=== PATIENT | male | born 2000 | race Caucasian/White ===

== ENCOUNTER 2024-11-23 05:40 | Emergency (ER) | payer OTHER ==
[2024-11-23 05:46] VITALS: RESP 18
--- NOTE | 2024-11-23 06:44 | XR ---
EXAMINATION TYPE: XR chest 2V DATE OF EXAM: 11/23/2024 6:41 AM COMPARISON: None CLINICAL INDICATION: Male, 24 years old with history of pain; [facility] TECHNIQUE: XR chest 2V Frontal and lateral views of the chest. FINDINGS: Lungs/Pleura: There is no evidence of pleural effusion, focal consolidation, or pneumothorax. Pulmonary vascularity: Unremarkable. Heart/mediastinum: Cardiomediastinal silhouette is unremarkable. Musculoskeletal: No acute osseous pathology. IMPRESSION: No acute cardiopulmonary disease/process. [facility], , 11/23/2024 6:42 AM
--- NOTE | 2024-11-23 07:08 | ED ---
Chest Pain HPI - General Chief Complaint: Chest Pain Stated Complaint: Chest pain Time Seen by Provider: 11/23/24 05:58 Source: patient, RN notes reviewed Mode of arrival: ambulatory Limitations: no limitations - History of Present Illness Initial Comments: 24-year-old male presents emergency department chief complaint of left-sided chest wall pain. Patient states that he lifted some granite the other day and injured his back and felt something in his chest but it worsened. He states he actually improved overnight but came back again this morning it is worse with movement, deep inspiration denies feeling short of breath. Denies any rashes. Patient denies any prior cardiac disease. - Related Data Allergies Allergy/AdvReac Type Severity Reaction Status Date / Time amoxicillin Allergy Rash/Hives Verified 11/23/24 05:43 latex Allergy Rash/Hives Verified 11/23/24 05:43 Review of Systems ROS Statement: Those systems with pertinent positive or pertinent negative responses have been documented in the HPI. ROS Other: All systems not noted in ROS Statement are negative. EKG Findings - EKG Comments: EKG Findings:: EKG performed at 5: 55 sinus rhythm rate of 65 ME 148 QRS 89 QT/QTc 383/394 - EKG Results: EKG: interpreted by [facility] Past Medical History Past Medical History: No Reported History History of Any Multi-Drug Resistant Organisms: None Reported Past Psychological History: No Psychological Hx Reported Smoking Status: Never smoker Past Alcohol Use History: Rare Past Drug Use History: Marijuana General Exam Limitations: no limitations General appearance: alert, in no apparent distress Head exam: Present: atraumatic, normocephalic, normal inspection Eye exam: Present: normal appearance, PERRL, EOMI. Absent: scleral icterus, conjunctival injection, periorbital swelling ENT exam: Present: normal exam, mucous membranes moist Neck exam: Present: normal inspection, full ROM. Absent: tenderness, meningismus, lymphadenopathy Respiratory exam: Present: normal lung sounds bilaterally, chest wall tenderness. Absent: respiratory distress, wheezes, rales, rhonchi, stridor Cardiovascular Exam: Present: regular rate, normal rhythm, normal heart sounds. Absent: systolic murmur, diastolic murmur, rubs, gallop, clicks GI/Abdominal exam: Present: soft, normal bowel sounds. Absent: distended, tenderness, guarding, rebound, rigid Course Vital Signs 11/23/24 05:43 Temperature 98.3 F Pulse Rate 83 Respiratory 18 Rate Blood Pressure 155/87 O2 Sat by Pulse 96 Oximetry Chest Pain MDM - MDM Was pt. sent in by a medical professional or institution (KARLA Martinez, CHIEF WHEELAGE CLERK, urgent care, hospital, or longterm...) When possible be specific @ -No Did you speak to anyone other than the patient for history (EMS, parent, family, police, friend...)? What history was obtained from this source @ -No Did you review nursing and triage notes (agree or disagree)? Why? @ -I reviewed and agree with nursing and triage notes Were old charts reviewed (outside hosp., previous admission, EMS record, old EKG , old radiological studies, urgent care reports/EKG's, longterm records)? Report findings @ -No old charts were reviewed Differential Diagnosis (chest pain, altered mental status, abdominal pain women, abdominal pain men, vaginal bleeding, weakness, fever, dyspnea, syncope, headache, dizziness, GI bleed, back pain, seizure, CVA, palpatations, mental health, musculoskeletal)? @ -Differential Chest Pain: Stable Angina, Unstable Angina, STEMI, NSTEMI Aortic Dissection, Pneumothorax, Musculoskeletal, Esophageal Spasm GERD, Cholecystitis, Pancreatitis, Zoster, this is not meant to be an all-inclusive list. EKG interpreted by me (3pts min.). @ -As above X-rays interpreted by me (1pt min.). @ -Chest x-ray shows no acute cardiopulmonary process CT interpreted by me (1pt min.). @ -None done U/S interpreted by me (1pt. min.). @ -None done What testing was considered but not performed or refused? (CT, X-rays, U/S, labs)? Why? @ -None What meds were considered but not given or refused? Why? @ -None Did you discuss the management of the patient with other professionals (professionals i.e. KARLA Martinez, CHIEF WHEELAGE CLERK, lab, RT, psych nurse, social work therapist, aluminum molding machine operator, teacher, sales promotion officer, family caseworker)? Give summary @ -No Was smoking cessation discussed for >3mins.? @ -No Was critical care preformed (if so, how long)? @ -No Were there social determinants of health that impacted care today? How? (Homel essness, low income, unemployed, alcoholism, drug addiction, transportation, low edu. Level, literacy, decrease access to med. care, custodial, rehab)? @ -No Was there de-escalation of care discussed even if they declined (Discuss DNR or withdrawal of care, Hospice)? DNR status @ -No What co-morbidities impacted this encounter? (DM, HTN, Smoking, COPD, CAD, Cancer, CVA, ARF, Chemo, Hep., AIDS, mental health diagnosis, sleep apnea, morbid obesity)? @ -None Was patient admitted / discharged? Hospital course, mention meds given and route, prescriptions, significant lab abnormalities, going to OR and other pertinent info. @ -Discharge patient has reproducible chest wall pain, pain after lifting some granite. Patient EKG is unremarkable chest x-ray is unremarkable. Vitals within normal notes. Patient advised to follow-up PCP return parameters lucy. Patient will continue anti-inflammatories. Undiagnosed new problem with uncertain prognosis? @ -No Drug Therapy requiring intensive monitoring for toxicity (Heparin, Nitro, Insulin, Cardizem)? @ -No Were any procedures done? @ -No Diagnosis/symptom? @ -Chest wall pain Acute, or Chronic, or Acute on Chronic? @ -Acute Uncomplicated (without systemic symptoms) or Complicated (systemic symptoms)? @ -Uncomplicated Side effects of treatment? @ -No Exacerbation, Progression, or Severe Exacerbation? @ -No Poses a threat to life or bodily function? How? (Chest pain, [place], [place], pneumonia, PE, COPD, DKA, ARF, appy, cholecystitis, CVA, Diverticulitis, Homicidal, Suicidal, threat to staff... and all critical care pts) @ -No Disposition Clinical Impression: Chest wall pain Disposition: HOME SELF-CARE Condition: Stable Instructions (If sedation given, give patient instructions): Chest Pain (ED) Additional Instructions: Please return to the Emergency Department if symptoms worsen or any other concerns. Is patient prescribed a controlled substance at d/c from ED?: No Referrals: Phil Mercado MD [STAFF PHYSICIAN] - 1-2 days Time of Disposition: 07:26
[2024-11-23 07:39] VITALS: BP 138/77; PULSE 59; TEMP 98
== END 2024-11-23 07:44 | disposition home or self-care (01) ==
LOC: EC 05:40
DX: R07.89 Other chest pain (principal); Z88.0 Allergy status to penicillin; Z91.040 Latex allergy status
CPT/HCPCS: 71046; 93005; 99285

== ENCOUNTER 2024-11-25 19:01 | Emergency (ER) | payer OTHER ==
[2024-11-25 19:07] VITALS: RESP 18; TEMP 97.6
[2024-11-25 19:40] LABS: Basophils % (A) 0 %; Eosinophils # (A) 0.3 k/uL (0-0.7); Eosinophils % (A) 2 %; HCT 42.4 % (39.0-53.0); HGB 14.5 gm/dL (13.0-17.5); Lymphocytes # (A) 2.8 k/uL (1.0-4.8); Lymphocytes % (A) 24 %; MCH 28.4 pg (25.0-35.0); MCHC 34.1 g/dL (31.0-37.0); MCV 83.2 fL (80.0-100.0); Mean Platelet Volume 7.8; Monocytes # (A) 0.6 k/uL (0-1.0); Monocytes % (A) 5 %; Neutrophils # (A) 8.1 k/uL (1.3-7.7); Neutrophils % (A) 67 %; Platelet Count 225 k/uL (150-450); RDW 12.6 % (11.5-15.5)
--- NOTE | 2024-11-25 19:48 | ED ---
General Adult HPI - General Chief complaint: Neuro Symptoms/Deficit Stated complaint: L side tingling Time Seen by Provider: 11/25/24 19:12 Source: patient, RN notes reviewed Mode of arrival: ambulatory Limitations: no limitations - History of Present Illness Initial comments: This is a 24-year-old male who presents to the emergency department for tingling to the left side of his body. States that about an hour prior to arrival he was coming home from work and started to get tingling in the left side of his body. He would not describe this as numbness, weakness, or pain, states that it just feels like it is tingling. He was evaluated here a couple of days ago for left- sided chest pain. States that he had similar tingling during that time as well. Also states that he had another similar episode several months ago, but was not evaluated at that time. Denies any current chest pain or shortness of breath. - Related Data Allergies Allergy/AdvReac Type Severity Reaction Status Date / Time amoxicillin Allergy Rash/Hives Verified 11/25/24 19:07 latex Allergy Rash/Hives Verified 11/25/24 19:07 Sulfa (Sulfonamide Allergy Rash/Hives Verified 11/25/24 19:07 Antibiotics) Review of Systems ROS Statement: Those systems with pertinent positive or pertinent negative responses have been documented in the HPI. ROS Other: All systems not noted in ROS Statement are negative. Past Medical History Past Medical History: No Reported History History of Any Multi-Drug Resistant Organisms: None Reported Additional Past Surgical History / Comment(s): testicle surgery Past Psychological History: No Psychological Hx Reported Smoking Status: Never smoker Past Alcohol Use History: Rare Past Drug Use History: Marijuana General Exam Limitations: no limitations General appearance: alert, in no apparent distress Head exam: Present: atraumatic, normocephalic, normal inspection Respiratory exam: Present: normal lung sounds bilaterally. Absent: respiratory distress, wheezes, rales, rhonchi, stridor Cardiovascular Exam: Present: regular rate, normal rhythm, normal heart sounds. Absent: systolic murmur, diastolic murmur, rubs, gallop, clicks Neurological exam: Present: alert, oriented X3, CN II-XII intact Expanded Cerebellar function: Finger to Nose: Normal, Heel to Marroquin: Normal, Romberg: Normal Upper motor neuron: Kiko Neglect: Normal, Pronator Drift: Normal, Babinski Sign: Normal, Sensory Extinction: Normal Sensory exam: Upper Extremity Light Touch: Normal, Upper Extremity Temperature: Normal, UE 2 Point Discrimination: Normal, Lower Extremity Light Touch: Normal, Lower Extremity Temperature: Normal, LE 2 Point Discrimination: Normal Motor strength exam: RUE: 5, LUE: 5, RLE: 5, LLE: 5 Psychiatric exam: Present: normal affect, normal mood Skin exam: Present: warm, dry, intact, normal color. Absent: rash Course Vital Signs 11/25/24 11/25/24 11/25/24 19:04 20:04 21:03 Temperature 97.6 F Pulse Rate 67 65 63 Respiratory 18 18 18 Rate Blood Pressure 172/95 152/90 138/87 O2 Sat by Pulse 98 96 97 Oximetry Medical Decision Making - Medical Decision Making This is a 24 year old male who presents to the emergency department for left- sided paresthesias. Was pt. sent in by a medical professional or institution? @ -No Did you speak to anyone other than the patient for history? @ -No Did you review nursing and triage notes? @ -Yes, and I agree, it is accurate with regards to the patient's symptoms. Were old charts reviewed? @ -No Differential Diagnosis? @ -CVA/TIA, MS, peripheral neuropathy, vitamin deficiency, this is not meant to be an all-inclusive list. EKG interpreted by me (3pts min.)? @ -EKG interpreted by me demonstrating the following: Sinus rhythm. Ventricular rate 66 beats per minute, NV interval 139 ms, QRS duration 88 ms, QTc 380 ms. X-rays interpreted by me (1pt min.)? @ -Not obtained CT interpreted by me (1pt min.)? @ -CT scan of the brain obtained. My interpretation identifies no evidence of an acute intracranial hemorrhage. CTA of the head and neck obtained. My interpretation identifies no evidence of aneurysm. U/S interpreted by me (1pt. min.)? @ -Not obtained What testing was considered but not performed? (CT, X-rays, U/S, labs)? Why? @ -None What meds were considered but not given? Why? @ -None Did you discuss the management of the patient with other professionals? @ -No Did you reconcile home meds? @ -No Was smoking cessation discussed for >3mins.? @ -No Was critical care preformed (if so, how long)? @ -No Were there social determinants of health that impacted care today? How? (Homelessness, low income, unemployed, alcoholism, drug addiction, transportation, low edu. Level, literacy, decrease access to med. care, group home, rehab)? @ -No Was there de-escalation of care discussed even if they declined? (Discuss DNR or withdrawal of care, Hospice)? @ -No What co-morbidities impacted this encounter? (DM, HTN, Smoking, COPD, CAD, Cancer, CVA, Hep., AIDS, mental health diagnosis, sleep apnea, morbid obesity)? @ -None Was patient admitted / discharged? @ -Discharged. On exam patient reported having tingling on the left side of his body. NIH was 0. He had no weakness or sensory deficits despite the tingling. We did proceed with a neurological workup. Lab work demonstrates mild leukocytosis and was otherwise unremarkable. CT scan of the brain and CTA of the head and neck revealed no acute process. He was given a liter bolus of IV fluids. Symptoms resolved on their own after arriving to the emergency department. Discussed with the patient that the cause of this episode is not clear. There is a possibility of undiagnosed MS, in which case he needs to follow-up with neurology. Patient advised that he has an appointment with his PCP tomorrow. Advised he follow-up as scheduled. Information for neurology follow-up provided as well. Advised he can contact them regarding an ER follow- up himself or get an official referral from his primary care provider tomorrow. Patient discharged home in stable condition. Case discussed with ED attending Dr. Short. Return precautions reviewed in depth, the patient is instructed to return to the emergency department with any new, worsening, or concerning symptoms. Patient verbalized understanding. Undiagnosed new problem with uncertain prognosis? @ -None Drug Therapy requiring intensive monitoring for toxicity (Heparin, Nitro, Insulin, Cardizem)? @ -None Were any procedures done? @ -None Diagnosis/symptom? @ -Paresthesias Acute, or Chronic, or Acute on Chronic? @ -Acute Uncomplicated (without systemic symptoms) or Complicated (systemic symptoms)? @ -Uncomplicated Side effects of treatment? @ -None Exacerbation, Progression, or Severe Exacerbation] @ -Not applicable Poses a threat to life or bodily function? @ -Unlikely, however this will depend on the cause - Lab Data Result diagrams: 11/25/24 19:31 11/25/24 19:31 Lab Results 11/25/24 11/25/24 11/25/24 Range/Units 19:31 19:31 19:31 WBC 12.0 H (3.8-10.6) k/uL RBC 5.10 (4.30-5.90) m/uL Hgb 14.5 (13.0-17.5) gm/dL Hct 42.4 (39.0-53.0) % MCV 83.2 (80.0-100.0) fL MCH 28.4 (25.0-35.0) pg MCHC 34.1 (31.0-37.0) g/dL RDW 12.6 (11.5-15.5) % Plt Count 225 (150-450) k/uL MPV 7.8 Neutrophils % 67 % Lymphocytes % 24 % Monocytes % 5 % Eosinophils % 2 % Basophils % 0 % Neutrophils # 8.1 H (1.3-7.7) k/uL Lymphocytes # 2.8 (1.0-4.8) k/uL Monocytes # 0.6 (0-1.0) k/uL Eosinophils # 0.3 (0-0.7) k/uL Basophils # 0.0 (0-0.2) k/uL PT 12.1 (10.0-12.5) sec INR 1.1 (<1.2) APTT 24.0 (22.0-30.0) sec Sodium 136 L (137-145) mmol/L Potassium 4.2 (3.5-5.1) mmol/L Chloride 105 (98-107) mmol/L Carbon Dioxide 21 L (22-30) mmol/L Anion Gap 10 mmol/L BUN 20 (9-20) mg/dL Creatinine 0.86 (0.66-1.25) mg/dL Est GFR (CKD-EPI)AfAm >90 (>60 ml/min/1.73 sqM) Est GFR (CKD-EPI)NonAf >90 (>60 ml/min/1.73 sqM) Glucose 126 H (74-99) mg/dL Calcium 9.2 (8.4-10.2) mg/dL Total Bilirubin 0.3 (0.2-1.3) mg/dL AST 21 (17-59) U/L ALT 19 (4-49) U/L Alkaline Phosphatase 86 (38-126) U/L Creatine Kinase 115 (55-170) U/L Troponin I (0.000-0.034) ng/mL Total Protein 7.5 (6.3-8.2) g/dL Albumin 4.5 (3.5-5.0) g/dL 11/25/24 Range/Units 19:31 WBC (3.8-10.6) k/uL RBC (4.30-5.90) m/uL Hgb (13.0-17.5) gm/dL Hct (39.0-53.0) % MCV (80.0-100.0) fL MCH (25.0-35.0) pg MCHC (31.0-37.0) g/dL RDW (11.5-15.5) % Plt Count (150-450) k/uL MPV Neutrophils % % Lymphocytes % % Monocytes % % Eosinophils % % Basophils % % Neutrophils # (1.3-7.7) k/uL Lymphocytes # (1.0-4.8) k/uL Monocytes # (0-1.0) k/uL Eosinophils # (0-0.7) k/uL Basophils # (0-0.2) k/uL PT (10.0-12.5) sec INR (<1.2) APTT (22.0-30.0) sec Sodium (137-145) mmol/L Potassium (3.5-5.1) mmol/L Chloride (98-107) mmol/L Carbon Dioxide (22-30) mmol/L Anion Gap mmol/L BUN (9-20) mg/dL Creatinine (0.66-1.25) mg/dL Est GFR (CKD-EPI)AfAm (>60 ml/min/1.73 sqM) Est GFR (CKD-EPI)NonAf (>60 ml/min/1.73 sqM) Glucose (74-99) mg/dL Calcium (8.4-10.2) mg/dL Total Bilirubin (0.2-1.3) mg/dL AST (17-59) U/L ALT (4-49) U/L Alkaline Phosphatase (38-126) U/L Creatine Kinase (55-170) U/L Troponin I <0.012 (0.000-0.034) ng/mL Total Protein (6.3-8.2) g/dL Albumin (3.5-5.0) g/dL - Radiology Data Radiology results: report reviewed, image reviewed Disposition Clinical Impression: Paresthesia of left arm and leg Disposition: HOME SELF-CARE Instructions (If sedation given, give patient instructions): Paresthesia (ED) Additional Instructions: Return to the emergency department with any new, worsening, or concerning symptoms. Contact the neurology office listed below for a follow-up appointment or discuss a referral with your primary care provider. You may want to consider being tested for MS. Follow-up with your primary care provider tomorrow as scheduled. Is patient prescribed a controlled substance at d/c from ED?: No Referrals: None,Stated [Primary Care Provider] - 1-2 days Pankaj Ornelas DO [STAFF PHYSICIAN] - 1-2 days Leif Fields MD [Medical Doctor] - 1-2 days Time of Disposition: 20:33
[2024-11-25 19:51] LABS: INR 1.1 (<1.2); Prothrombin Time 12.1 sec (10.0-12.5)
[2024-11-25 19:56] LABS: ALT 19 U/L (4-49); AST 21 U/L (17-59); African American GFR (CKD) >90 (>60 ml/min/1.73 sqM); Albumin 4.5 g/dL (3.5-5.0); Alkaline Phosphatase 86 U/L (38-126); Anion Gap 10 mmol/L; Blood Urea Nitrogen 20 mg/dL (9-20); Calcium 9.2 mg/dL (8.4-10.2); Carbon Dioxide 21 mmol/L (22-30); Chloride 105 mmol/L (98-107); Creatine Kinase 115 U/L (55-170); Glucose 126 mg/dL (74-99); Non-African American GFR(CKD) >90 (>60 ml/min/1.73 sqM); Potassium 4.2 mmol/L (3.5-5.1); Sodium 136 mmol/L (137-145); Total Bilirubin 0.3 mg/dL (0.2-1.3); Total Protein 7.5 g/dL (6.3-8.2)
[2024-11-25] MEDS: SODIUM CHLORIDE 0.9% 1,000 ML IV STA (20:07)
--- NOTE | 2024-11-25 20:13 | CT ---
EXAMINATION TYPE: CT brain wo con DATE OF EXAM: 11/25/2024 8:01 PM COMPARISON: None. 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 TECHNIQUE: Brain: Axial CT images of the brain were obtained with coronal and sagittal reformats created and rev iewed. Contrast used: None. Oral contrast used: None. CT DLP: 1192 mGycm, Automated exposure control for dose reduction was used. FINDINGS: Brain: Extra-axial spaces: No abnormal extra-axial fluid collections. Ventricular system: Within normal limits given septum pellucidum. Cerebral parenchyma: No acute intraparenchymal hemorrhage or mass effect. The mcgregor-white junction is well differentiated. Cerebellum: Unremarkable. Mass effect: No evidence of midline shift. Intracranial vasculature: unremarkable Soft tissues: Normal. Calvarium/osseous structures: No depressed skull fracture. Paranasal sinuses and mastoid air cells: Mild scattered paranasal sinus disease. Visualized orbits: Orbital contents are intact. IMPRESSION: No acute intracranial process. [facility], , 11/25/2024 8:11 PM
--- NOTE | 2024-11-25 20:21 | CT ---
EXAMINATION TYPE: CT angio head neck DATE OF EXAM: 11/25/2024 8:02 PM COMPARISON: 11/25/2024. 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 TECHNIQUE: Axially acquired helical CT angiogram of the head and neck was obtained with contrast. Axi al images are supplemented with 3D reconstructions and MIP images which were post-processed at an in dependent workstation. NASCET criteria used. Contrast used:65ml mL of Isovue 370 with IV Contrast, Oral contrast used: None. CT DLP: 627.4 mGycm, Automated exposure control for dose reduction was used. FINDINGS: CTA HEAD: No evidence of acute intracranial hemorrhage, mass effect, or midline shift. The ventricles, sulci, a nd cisterns are unremarkable. Cavum septum callosum noted. Vertebral arteries: The vertebral arteries are patent. Vertebral artery dominance: Codominant Basilar artery: The basilar artery is intact. The basilar artery bifurcation is normal. Internal Carotid arteries: The cervical, petrous, cavernous and supraclinoid segments are normal. JUAN: Patent with no evidence of aneurysm. ACOM: Present without evidence of aneurysm. MCA: Patent with no evidence of aneurysm. CARTRIDGE GAUGER: Patent with no evidence of aneurysm. PCOM: Hypoplastic bilaterally. Dural sinuses: Patent. CTA NECK: Right Carotid System: The common carotid artery and external carotid artery are patent. The carotid bifurcation demonstrate s no evidence of hemodynamically significant stenosis. The remaining portions of the internal carotid artery demonstrate normal size without significant narrowing. Left Carotid System: The common carotid artery and external carotid artery are patent. The carotid bifurcation demonstrate s no evidence of hemodynamically significant stenosis. The remaining portions of the internal carotid artery demonstrate normal size without significant narrowing. Vertebral arteries are patent without evidence hemodynamically significant stenosis. There is a three-vessel aortic arch. The origins of the great vessels are patent. No evidence of hemo dynamically significant stenosis. IMPRESSION: No evidence of dissection of the cervical internal carotid arteries or vertebral arteries. No any evidence of significant stenosis at the carotid bifurcations. No evidence of intracranial high-grade stenosis or intracranial aneurysm. [facility], , 11/25/2024 8:19 PM
[2024-11-25 21:04] VITALS: BP 138/87; PULSE 63
== END 2024-11-25 21:05 | disposition home or self-care (01) ==
LOC: EC 19:01
DX: R20.2 Paresthesia of skin (principal); Z88.0 Allergy status to penicillin; Z91.040 Latex allergy status; Z88.2 Allergy status to sulfonamides
CPT/HCPCS: 36415; 93005; 80053; 82607; 82550; 84484; 85025; 85610; 85730; 70496; 70450; 70498; 99285; 96360; Q9967

== ENCOUNTER → 2025-01-13 | Outpatient (CLI) | payer OTHER ==
--- NOTE | 2025-01-13 14:31 | XR ---
EXAMINATION TYPE: XR cervical spine comp DATE OF EXAM: 01/13/2025 2:19 PM INDICATION: Patient age:Male; 24 years old; Reason for study: M54.2; PHH, pain COMPARISON: CTA head and neck 11/25/2024 TECHNIQUE: The cervical spine was imaged in 4 projections. Frontal, lateral, odontoid and bilateral o blique. FINDINGS: The osseous structures show normal alignment without evidence of an acute fracture. The intervertebra l disk spaces are preserved. Pedicles are intact. Soft tissues are within normal limits. The odonto id appears intact. IMPRESSION: 1. No fracture or dislocation. 2. No degenerative disc disease identified. [facility], , 01/13/2025 2:29 PM
--- NOTE | 2025-01-13 14:32 | XR ---
EXAMINATION TYPE: XR shoulder complete LT DATE OF EXAM: 01/13/2025 2:19 PM INDICATION: Patient age:Male; 24 years old; Reason for study: R20.2; pain COMPARISON: Chest radiograph 11/23/2024 TECHNIQUE: The left shoulder was examined in AP, internally rotated and scapular Y projections. . FINDINGS: No evidence of acute osseous pathology, joint dislocation, or soft tissue swelling. The remaining por tions of the visualized chest are unremarkable. IMPRESSION: No acute osseous pathology. [facility], , 01/13/2025 2:29 PM
--- NOTE | 2025-01-13 14:33 | XR ---
EXAMINATION TYPE: XR lumbosacral spine min 4V DATE OF EXAM: 01/13/2025 2:19 PM INDICATION: Patient age:Male; 24 years old; Reason for study: M54.9; PHH. pain COMPARISON: None TECHNIQUE: Frontal, lateral , bilateral oblique and coned in L5-S1 lateral views of the spine. FINDINGS: There are 5 lumbar type vertebral bodies identified. No evidence of any acute osseous patho logy. No evidence of loss of vertebral body height is seen. There is normal alignment of the lumbar vertebral bodies. This heights are maintained. IMPRESSION: 1. No acute process. 2. No degenerative disc disease. [facility], , 01/13/2025 2:31 PM
--- NOTE | 2025-01-13 14:33 | XR ---
EXAMINATION TYPE: XR Hip Bilateral Complete DATE OF EXAM: 01/13/2025 2:19 PM INDICATION: Patient age:Male; 24 years old; Reason for study: M54.9; PHH. pain COMPARISON: None. TECHNIQUE: Both hips were examined in the frontal and lateral projections . FINDINGS: No evidence of any acute osseous pathology, joint dislocation, or soft tissue swelling. IMPRESSION: No acute osseous pathology. [facility], , 01/13/2025 2:31 PM
== END | disposition home or self-care (01) ==
LOC: RADXRMAIN 13:41
PROVIDERS: ATTEND Physician Assistant
DX: M16.0 Bilateral primary osteoarthritis of hip (principal); M54.2 Cervicalgia; M54.9 Dorsalgia, unspecified; R20.2 Paresthesia of skin; M54.50 Low back pain, unspecified
CPT/HCPCS: 72050; 72110; 73521